=== PATIENT | female | born 1965 | race Caucasian/White ===

== ENCOUNTER 2018-12-25 20:02 | Emergency (ER) | payer BC ==
[~2018-12-25] VITALS: Ht 162.6 cm; Wt 81.6 kg
[~2018-12-25 20:02] MED LIST: ALLEGRA180 MG PO; CYCLOBENZAPRINE10 MG PO; DAYPRO600 MG PO; MOTRIN IB200 MG PO; NORCO 5-325 TA1 EACH PO; NORCO 7.5-3251 EACH PO
--- NOTE | 2018-12-26 08:08 | EKG ---
[facility] [address] [facility] [place], [place] [address] Signed Normal sinus rhythm Possible Left atrial enlargement Nonspecific T wave abnormality Abnormal ECG No previous ECGs available Confirmed by ANDREW CRESPO MD ([id number]) on 12/26/2018 8:07:45 AM Electronically Signed By: ANDREW CRESPO MD 12/26/18 0808 PATIENT NAME: JOEL CHENG Electrocardiogram DATE OF : 65 PHYSICIAN: ANDREW CRESPO MD REPORT #: [id number] REPORT IS CONFIDENTIAL AND NOT TO BE RELEASED WITHOUT AUTHORIZATION
== END 2018-12-26 00:35 | disposition home or self-care (01) ==
LOC: ED 20:02
DX: R07.89 Other chest pain (principal); Z87.891 Personal history of nicotine dependence
CPT/HCPCS: 71046; 80053; 83735; 84484; 85025; 93005; 93010; 99285-25

== ENCOUNTER 2019-09-02 08:39 | Day surgery (SDC) | payer BC ==
[~2019-09-02] VITALS: Ht 162.6 cm; Wt 85.7 kg
[2019-09-02] MEDS ORDERED: PEG3350510 GM (09:11)
--- NOTE | 2019-09-02 10:05 | NUR ---
STATES NO CHANGE IN HEADACHE SINCE TYLENOL.
--- NOTE | 2019-09-02 10:41 | NUR ---
09/02/19 Ally1 Tiffany Dyer 1037-PATIENT ARRIVED TO PACU DROWSY AROUSES TO VERBAL STIMULI DROWSY BACK TO SLEEP ON 2L NC RR EVEN. LAYING LEFT LATERAL. ABDOMEN SOFT IVF INFUSING.
--- NOTE | 2019-09-03 09:54 | OR ---
[facility] [address] [place], [place] [address] Signed DATE OF OPERATION: 09/02/2019 SURGEON: Vini Cortez MD PREOPERATIVE DIAGNOSIS: Screening. POSTOPERATIVE DIAGNOSIS: 1. Mild to moderate sigmoid diverticulosis. 2. 3 mm polyps x2 at 10 cm. PROCEDURE: Colonoscopy with cold biopsy. ESTIMATED BLOOD LOSS: None. INDICATIONS: Mimi is a 53-year-old female, asked to see me for initial screening colonoscopy. She has no lower GI complaints. There is no family history of colon cancer or polyps. In the office, I gave her a pamphlet on colonoscopy. We looked at that together along with the risks including, but not limited to, gas, bloating, crampy abdominal pain, bleeding, perforation requiring surgery, and missed diagnosis. We also discussed the need for IV conscious sedation. She had expressed understanding, wished to proceed. PROCEDURE NOTE: Mimi was taken into our endoscopy suite and placed in the left lateral decubitus position. She had a significant headache preoperatively, so we let her have 650 mg of Tylenol with a sip of water. For the procedure we gave her 6 mg of Versed and 100 mcg of fentanyl. A digital rectal exam was performed and this was unremarkable. The adult colonoscope was introduced and advanced quite readily into the cecum itself. Her prep was quite good. The scope was slowly withdrawn. We could easily see the appendiceal orifice and the ileocecal valve. She does have diverticula in the sigmoid colon. They were moderate in size, minimal to moderate in number, and scattered about. In the rectum she had two very small 3 mm polyps at about 10 cm. They were easily removed with the help of the cold biopsy forceps. Upon retroflexion of scope, there was no additional pathology noted above the anal canal. After this, the gas was suctioned out. The colonoscope removed. Mimi tolerated the procedure quite well. RECOMMENDATIONS: Electronically Signed By: VINI CORTEZ MD 09/03/19 0954 PATIENT NAME: MIMI CHENG OPERATIVE REPORT DATE OF : 65 REPORT #: [id number] PHYSICIAN: VINI CORTEZ MD PCP: ISREAL MISTRY DO REPORT IS CONFIDENTIAL AND NOT TO BE RELEASED WITHOUT AUTHORIZATION [address] [address] Signed I will see Mimi back in my office in 7 to 14 days to review her results. Vini Cortez MD ALB/MODL /[id number] cc: DO Vini Barahona MD Copies: ISREAL MISTRY ANDREW L MD ~ Electronically Signed By: VINI CORTEZ MD 09/03/19 0954 PATIENT NAME: MIMI CHENG OPERATIVE REPORT DATE OF : 65 REPORT #: [id number] PHYSICIAN: VINI CORTEZ MD PCP: ISREAL MISTRY DO REPORT IS CONFIDENTIAL AND NOT TO BE RELEASED WITHOUT AUTHORIZATION
--- NOTE | 2019-09-06 15:12 | PATH ---
[facility] [place] [facility] [address] [place], [place] [address] Signed SPECIMEN(S): A RECTUM SPECIMEN SOURCE: A. RECTUM CLINICAL HISTORY: Pre: Colon screening. Post: Rectal polyps/diverticulosis. MICROSCOPIC DESCRIPTION: Histologic sections of all submitted blocks are examined by light microscopy. These findings, together with the gross examination, support the pathologic diagnosis. FINAL PATHOLOGIC DIAGNOSIS: Mucosa, rectum, biopsy: - Hyperplastic polyp. YESSENIAA:vlg:C2NR GROSS DESCRIPTION: The specimen, labeled "RH," and designated on the requisition "rectum polypectomy," is received in formalin and consists of two fragments of pink-sorto tissue (0.5 x 0.2 x 0.2 cm). The specimen is submitted entirely in cassette (A1). AC (under the direct supervision of a pathologist) The Gross Description was prepared using a voice recognition system. The report was reviewed for accuracy; however, sound-alike word errors, addition and/or deletions may occur. If there is any question about this report, please contact Client Services. PERFORMING LABORATORY: The technical component was performed by [facility], [address] [place] [id number] (Network Control Operator: Isamar Blair MD; CLIA# [id number]). Professional interpretation was performed by [facility], [facility] [address] [address] (CLIA# [id number]). Diagnostician: Jose Calvillo MD Pathologist Electronically Signed 09/06/2019 PATIENT NAME: JOEL CHENG PATHOLOGY DATE OF : 65 REPORT #: [id number] PHYSICIAN: [facility] PCP: ISREAL MISTRY DO REPORT IS CONFIDENTIAL AND NOT TO BE RELEASED WITHOUT AUTHORIZATION [address] [place], [place] [address] Signed Copies: ~ PATIENT NAME: JOEL HCENG PATHOLOGY DATE OF : 65 REPORT #: [id number] PHYSICIAN: LILLIAN PATHOLOGY PCP: ISREAL MISTRY DO REPORT IS CONFIDENTIAL AND NOT TO BE RELEASED WITHOUT AUTHORIZATION
== END 2019-09-02 11:57 | disposition home or self-care (01) ==
LOC: OPS 08:39 → DS 08:39 → OPS 11:00
PROVIDERS: Colon & Rectal Surgery
PROC: 0DBP8ZZ Excision of Rectum, Via Natural or Artificial Opening Endoscopic (ICD-10-PCS; principal; 2019-09-02 11:00)
DX: Z12.11 Encounter for screening for malignant neoplasm of colon (principal); K62.1 Rectal polyp; K57.30 Diverticulosis of large intestine without perforation or abscess without bleeding; Z91.018 Allergy to other foods; Z91.040 Latex allergy status
CPT/HCPCS: 99153; G0500; J2250; J3010; J7121

== ENCOUNTER 2020-08-01 02:28 | Emergency (ER) | payer BC ==
[~2020-08-01] VITALS: Ht 162.6 cm; Wt 81.7 kg
[~2020-08-01 02:28] MED LIST changes: +PEG3350510 GM
[2020-08-01] MEDS ORDERED: MELOXICAM15 MG PO (03:08)
[2020-08-01] MEDS ORDERED: HYDROCODON-ACE1 EA10 PO (06:44)
== END 2020-08-01 07:31 | disposition home or self-care (01) ==
LOC: ED 02:28
DX: U07.1 COVID-19 (principal); J12.82 Pneumonia due to coronavirus disease 2019; R10.9 Unspecified abdominal pain; Z87.891 Personal history of nicotine dependence; Z91.040 Latex allergy status; Z91.018 Allergy to other foods; Z79.899 Other long term (current) drug therapy
CPT/HCPCS: 51701; 71046; 74177; 80053; 81001; 83605; 83690; 85025; 87040; 94640; 94664; 99284-25; C9803; J2405; J7030; Q9967; U0003

== ENCOUNTER 2020-11-18 17:00 | Emergency (ER) | payer BC ==
[~2020-11-18] VITALS: Ht 162.6 cm; Wt 81.7 kg
[~2020-11-18 17:00] MED LIST changes: +HYDROCODON-ACE1 EA10 PO; +MELOXICAM15 MG PO
[2020-11-18] MEDS ORDERED: HYDROCODON-ACE1 EA10 PO (18:01)
[2020-11-18] MEDS ORDERED: SILVADENE20 GM TOP (18:01)
== END 2020-11-18 19:45 | disposition home or self-care (01) ==
LOC: ED 17:00
DX: T23.042A Burn of unspecified degree of multiple left fingers (nail), including thumb, initial encounter (principal); T31.0 Burns involving less than 10% of body surface; Z23 Encounter for immunization; X19.XXXA Contact with other heat and hot substances, initial encounter; Z87.891 Personal history of nicotine dependence; Z91.040 Latex allergy status; Z91.018 Allergy to other foods; Z79.899 Other long term (current) drug therapy
CPT/HCPCS: 16020; 90471; 90715; 99283-25; J1170

== ENCOUNTER 2020-12-11 18:40 | Emergency (ER) | payer OTHER, BC ==
[~2020-12-11] VITALS: Ht 162.6 cm; Wt 81.7 kg
[~2020-12-11 18:40] MED LIST changes: +SILVADENE20 GM TOP
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
== END 2020-12-11 21:17 | disposition home or self-care (01) ==
LOC: ED 18:40
DX: S00.83XA Contusion of other part of head, initial encounter (principal); Y04.8XXA Assault by other bodily force, initial encounter; Z87.891 Personal history of nicotine dependence; Z79.899 Other long term (current) drug therapy; Z91.018 Allergy to other foods; Z91.040 Latex allergy status
CPT/HCPCS: 70486; 99284-25

== ENCOUNTER 2024-07-10 18:06 | Emergency (ER) | payer OTHER ==
[~2024-07-10] VITALS: Ht 162.6 cm; Wt 89.0 kg
[~2024-07-10 18:06] MED LIST changes: +ACETAMINOPHEN500 MG PO; +IBUPROFEN600 MG PO; +OXYCODON-ACETA1 EAC2 PO; +PROTONIX40 MG PO; +VITAMIN B-1000 MCG/1 PO
[2024-07-10 22:18] VITALS: BP 144/86
== END 2024-07-10 22:18 | disposition home or self-care (01) ==
LOC: ED 18:06
DX: T23.261A Burn of second degree of back of right hand, initial encounter (principal); T20.10XA Burn of first degree of head, face, and neck, unspecified site, initial encounter; Z87.891 Personal history of nicotine dependence; Z91.040 Latex allergy status; Z79.899 Other long term (current) drug therapy
CPT/HCPCS: 16000; 99283